=== PATIENT | female | born 1965 | race Two or more races ===

== ENCOUNTER 2019-02-14 20:28 | Emergency (ER) | payer MEDICAID, OTHER ==
[~2019-02-14] VITALS: Ht 144.8 cm; Wt 51.9 kg
[2019-02-15] MEDS ORDERED: TETRACAINE 0.5% OPHTH DROPS 4ML RIGHTEYE ONE (01:45)
[2019-02-15] MEDS ORDERED: FLUORESCEIN SODIUM 1MG/STRIP RIGHTEYE ONE (02:15)
[2019-02-15 03:08] VITALS: BP 135/76
== END 2019-02-15 03:11 | disposition home or self-care (01) ==
LOC: ER 20:28
DX: S05.01XA Injury of conjunctiva and corneal abrasion without foreign body, right eye, initial encounter (principal); X58.XXXA Exposure to other specified factors, initial encounter; Y93.89 Activity, other specified; Y92.018 Other place in single-family (private) house as the place of occurrence of the external cause
CPT/HCPCS: 99283